=== PATIENT | male | born 1965 | race Caucasian/White ===

== ENCOUNTER 2017-10-28 08:00 | Outpatient (CLI) | payer OTHER ==
[2017-10-28 18:09] LABS: BASOPHILS % (AUTO) 0.6 %; EOSINOPHILS # (AUTO) 0.1 10^3/uL (0.0-0.7); EOSINOPHILS % (AUTO) 1.6 %; HGB - HEMOGLOBIN 15.5 g/dL (14.0-18.0); LYMPHOCYTES # (AUTO) 1.8 10^3/uL (1.5-3.5); LYMPHOCYTES % (AUTO) 24.5 %; MEAN CORPUSCULAR HEMOGLOBIN 30.2 pg (27.0-31.0); MEAN CORPUSCULAR HGB CONC 33.6 g/dL (32.0-36.0); MEAN CORPUSCULAR VOLUME 89.9 fL (80.0-94.0); MEAN PLATELET VOLUME 7.5 fL (7.4-11.4); MONOCYTES # (AUTO) 0.5 10^3/uL (0.0-1.0); MONOCYTES % (AUTO) 6.5 %; NEUTROPHILS # (AUTO) 4.9 10^3/uL (1.5-6.6); NEUTROPHILS % (AUTO) 66.8 %; PLT - PLATELET COUNT 273 10^3/uL (130-450); RED BLOOD COUNT 5.13 10^6/uL (4.70-6.10); RED CELL DISTRIBUTION WIDTH 13.7 % (12.0-15.0); WHITE BLOOD COUNT 7.4 x10^3/uL (4.8-10.8)
[2017-10-28 18:33] LABS: ALBUMIN 3.9 g/dL (3.2-5.5); ALBUMIN/GLOBULIN RATIO 1.1 (1.0-2.2); ALKALINE PHOSPHATASE 71 IU/L (42-121); ALT ALANINE AMINOTRANSFERASE 32 IU/L (10-60); AST ASPARTATE AMINOTRANSFERASE 28 IU/L (10-42); BILIRUBIN,TOTAL 0.6 mg/dL (0.2-1.0); BUN - BLOOD UREA NITROGEN 16 mg/dL (6-20); CALCIUM 9.1 mg/dL (8.5-10.3); CARBON DIOXIDE - CO2 29 mmol/L (21-32); CHLORIDE 100 mmol/L (101-111); CHOL/HDL RATIO 5.8 (<5.0); CHOLESTEROL 213 mg/dL; CREATININE 0.9 mg/dL (0.6-1.2); GFR - MDRD 88 (>89); GLUCOSE 119 mg/dL (70-100); HDL CHOLESTEROL 37 mg/dL; LDL CHOLESTEROL,CALCULATED 117 mg/dL; LDL/HDL RATIO 3.2 (<3.6); SODIUM 135 mmol/L (135-145); TOTAL PROTEIN 7.4 g/dL (6.7-8.2); VLDL CHOLESTEROL 59 mg/dL
== END 2017-10-28 08:01 | disposition home or self-care (01) ==
LOC: LAB.R 08:00
PROVIDERS: ATTEND Nurse Practitioner Primary Care
DX: R31.9 Hematuria, unspecified (principal); Z68.38 Body mass index [BMI] 38.0-38.9, adult; E78.5 Hyperlipidemia, unspecified
CPT/HCPCS: 80053; 80061; 83721; 84153; 84443; 85025

== ENCOUNTER 2017-11-03 07:42 | Outpatient (CLI) | payer OTHER ==
[2017-11-03] MEDS ORDERED: IOPAMIDOL-300 100 ML VIAL ONE (08:19)
[2017-11-03] MEDS ORDERED: IOPAMIDOL-300 100 ML VIAL IVP ONE (08:35)
--- NOTE | 2017-11-03 16:23 | CT Report ---
Procedure Date: 11/03/2017 Accession Number: [id number] / [id number] Procedure: CT - Abdomen/Pelvis W/WO CPT Code: FULL RESULT: EXAM: CT ABDOMEN AND PELVIS WITHOUT AND WITH CONTRAST (CT IVP) EXAM DATE: 11/03/2017 08:43 AM. CLINICAL HISTORY: Flank pain, left, hematuria, family history of kidney cancer. COMPARISONS: None. TECHNIQUE: Routine helical imaging was performed through the kidneys, ureters and bladder in the precontrast, and postcontrast. IV Contrast: ISOVUE 300 100mL. Reconstructions: Coronal and sagittal. In accordance with CT protocol optimization, one or more of the following dose reduction techniques were utilized for this exam: automated exposure control, adjustment of mA and/or KV based on patient size, or use of iterative reconstructive technique. FINDINGS: Lung Bases: Lung bases are clear. Linear bibasilar scar/atelectasis. Included portions of the heart are unremarkable. Small hiatal hernia. Right Kidney/Ureter: Unenhanced images without evidence for nephrolithiasis. No ureteral calculi. Postcontrast enhancement of the right kidney without evidence for renal mass. Suboptimal distention of both ureters, in particular the lower pole right ureter. 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 Left Kidney/Ureter: Unenhanced images left kidney without evidence for nephrolithiasis. Postcontrast enhancement of the left kidney without evidence for renal mass. No ureteral dilatation or ureteral calculi. Suboptimal distention and opacification of the left ureter without dilatation. Other Solid Organs: Mild fatty liver. No hepatic lesions. Gallbladder, adrenals, spleen, and pancreas are unremarkable. No pancreatic or biliary ductal dilatation.The bile ducts are unremarkable. Peritoneal Cavity/Bowel: Stomach is mildly distended and unremarkable. No small bowel wall thickening or obstruction. Small fatty umbilical hernia. Appendix is normal. Moderate volume of stool in the colon. Diverticula are seen in the colon, largely the distal colon. No diverticulitis. No enlarged retroperitoneal or mesenteric lymph nodes. No free air. No intraabdominal fluid collections. Pelvic Organs: No bladder calculi are seen on the unenhanced images. Postcontrast there is nearly complete opacification with contrast only urinary bladder. No focal thickening or nodularity seen involving the bladder. Prostate gland and seminal vesicles are unremarkable. No pelvic adenopathy. No pelvic free fluid. Vasculature: Normal. Bones: Mild degenerative changes lower thoracic and lumbar spine. Lumbar facet arthropathy. No osseous lesions. Other: None. IMPRESSION: 1. Etiology for patient's flank pain and hematuria is not identified. No nephrolithiasis. No renal masses. 2. Duplicated right renal collecting system. No distinct bladder lesions are identified. Limited distention and opacification of the ureters bilaterally without definitive evidence for focal soft tissue thickening, mass effect or dilatation. 3. Distal colonic diverticulosis. No diverticulitis. [facility]
== END 2017-11-03 07:43 | disposition home or self-care (01) ==
LOC: DI 07:42
PROVIDERS: ATTEND Nurse Practitioner Primary Care
DX: R10.9 Unspecified abdominal pain (principal); R31.9 Hematuria, unspecified; Z80.51 Family history of malignant neoplasm of kidney; K57.30 Diverticulosis of large intestine without perforation or abscess without bleeding
CPT/HCPCS: 74178; Q9967